=== PATIENT | female | born 1990 | race Two or more races ===

== ENCOUNTER 2024-10-15 18:22 | Emergency (ER) | payer OTHER ==
[~2024-10-15] VITALS: Ht 165.1 cm; Wt 94.3 kg
[2024-10-15 18:37] VITALS: BP 92/59; O2SAT 100
[2024-10-15] MEDS ORDERED: FAMOtidine 10 MG/ML (4ML VIAL) IV ONE (19:00)
[2024-10-15] MEDS ORDERED: ONDANSETRON HCL 2 MG/ML VIAL IV ONE (19:00)
[2024-10-15] MEDS ORDERED: ONDANSETRON HCL 2 MG/ML VIAL ONE (19:41)
[2024-10-15] MEDS ORDERED: FAMOTIDINE/PF 20 MG/2 ML VIAL ONE (19:41)
[2024-10-15 19:47] LABS: HEMATOCRIT 39.6 % (36.0-45.00); HEMOGLOBIN 13.6 g/dL (12.0-15.00); MEAN CELL VOLUME 91.7 fL (80.00-100.00); MEAN CORPUSCULAR HEMOGLOBIN 31.5 pg (27.00-32.0); MEAN CORPUSCULAR HGB CONC 34.4 g/dl (32.0-36.0); PLATELET COUNT 305 K/uL (150-450); RED BLOOD COUNT 4.32 M/uL (4.00-6.00); RED CELL DISTRIBUTION WIDTH 13.8 % (11.5-14.5)
[2024-10-15 20:06] LABS: PH,URINE 6.5 (5.0-8.0); URINE APPEARANCE Clear; URINE BILIRRUBIN Negative (NEGATIVE); URINE BLOOD Negative; URINE COLOR Yellow; URINE GLUCOSE Negative (NEGATIVE); URINE KETONE Negative (NEGATIVE); URINE LEUKOCYTE Large; URINE NITRATE Negative; URINE PROTEIN Negative (NEGATIVE)
[2024-10-15 20:10] LABS: URINE BACTERIA 2168.8 uL (0.0-1933); URINE EPITHELIAL CELLS 36.5 uL (0.0-38.8); URINE RBC 22.3 uL (0.0-20.8)
[2024-10-15 20:28] LABS: ALBUMIN 3.5 gm/dL (3.4-5.0); BILIRUBIN TOTAL 0.38 mg/dL (0.3-1.2); CALCIUM 9.4 mg/dL (8.5-10.1); CREATININE SERUM 0.81 mg/dL (0.55-1.02); GFR 81.43; GLOBULINA 3.6 G/DL (2.4-3.5); POTASSIUM 3.92 mEq/L (3.5-5.1); TOTAL PROTEIN 7.1 gm/dL (6.4-8.2)
[2024-10-15 20:39] LABS: URINE CAST 0.44 uL (0.0-1.40)
[2024-10-15] MEDS ORDERED: ZOFRAN8 MG PO (23:08)
[2024-10-15] MEDS ORDERED: PROTONIX40 MG PO (23:08)
== END 2024-10-15 23:14 | disposition home or self-care (01) ==
LOC: ER 18:23
PROVIDERS: General Practice
DX: O26.891 Other specified pregnancy related conditions, first trimester (principal); Z3A.08 8 weeks gestation of pregnancy; R10.11 Right upper quadrant pain

== ENCOUNTER 2025-04-02 21:53 | Outpatient (CLI) | payer OTHER ==
[~2025-04-02] VITALS: Ht 165.1 cm; Wt 102.1 kg
[~2025-04-02 21:53] MED LIST: PROTONIX40 MG PO; ZOFRAN8 MG PO
[2025-04-02 22:18] VITALS: BP 98/64; O2SAT 99
[2025-04-02] MEDS ORDERED: MAGNESIUM100 MG PO (22:55)
[2025-04-02] MEDS ORDERED: PRENATAL TABLE1 EAC1 PO (22:55)
[2025-04-02] MEDS ORDERED: MUCINEX600 MG PO (22:56)
[2025-04-02] MEDS ORDERED: RINGERS SOLUTION,LACTATED 1,000 ML IV SCH (23:00)
[2025-04-02 23:25] VITALS: BP 98/67
[2025-04-02 23:29] LABS: URINE APPEARANCE Cloudy; URINE BILIRRUBIN Negative (NEGATIVE); URINE BLOOD Negative; URINE COLOR Yellow; URINE GLUCOSE Negative (NEGATIVE); URINE KETONE Negative (NEGATIVE); URINE LEUKOCYTE Large; URINE NITRATE Negative; URINE PROTEIN Negative (NEGATIVE); URINE UROBILINOGEN 0.2 E.U./dl
[2025-04-02 23:32] LABS: URINE BACTERIA 2312.3 uL (0.0-1933); URINE EPITHELIAL CELLS 75.3 uL (0.0-38.8); URINE RBC 6.3 uL (0.0-20.8); URINE WBC 285.1 uL (0.0-23.2)
[2025-04-02 23:50] LABS: BASO % 0.4 % (0.1-1.2); EOS # 0.08 (0.04-0.54); EOS % 1.0 % (0.7-7.0); LYMPH # 2.52 (1.18-3.74); LYMPH % 30.8 % (19.3-53.1); MEAN PLATELET VOLUME 9.30 fl (9.4-12.4); MONO # 0.53 (0.24-0.82); MONO % 6.5 % (4.7-12.5); NEUT # 4.87 (1.56-6.13); NEUT % 59.6 % (34.0-71.1); RED CELL DISTRIBUTION WIDTH 12.4 % (11.6-14.4)
[2025-04-02 23:53] LABS: INR 0.97
[2025-04-03 00:30] LABS: URINE CAST 0.14 uL (0.0-1.40)
[2025-04-03 00:33] LABS: TYPE CELLS SQUAMOUS
[2025-04-03] MEDS ORDERED: CEFAZOLIN SODIUM 1,000 MG VIAL IV SCH (00:43)
[2025-04-03 03:19] VITALS: BP 98/66
[2025-04-03 06:22] VITALS: BP 102/65; O2SAT 97
[2025-04-03 10:58] VITALS: BP 102/65
== END 2025-04-03 11:06 | disposition home or self-care (01) ==
LOC: OBS/DEL 21:53
PROVIDERS: ATTEND Obstetrics & Gynecology
DX: O23.43 Unspecified infection of urinary tract in pregnancy, third trimester (principal); N39.0 Urinary tract infection, site not specified; O26.849 Uterine size-date discrepancy, unspecified trimester; O36.8130 Decreased fetal movements, third trimester, not applicable or unspecified; Z3A.31 31 weeks gestation of pregnancy

== ENCOUNTER 2025-05-01 19:19 | Inpatient (IN) | payer OTHER ==
[~2025-05-01] VITALS: Ht 165.1 cm; Wt 108.9 kg
[~2025-05-01 19:19] MED LIST changes: +MAGNESIUM100 MG PO; +MUCINEX600 MG PO; +PRENATAL TABLE1 EAC1 PO
[2025-05-01] MEDS ORDERED: RINGERS SOLUTION,LACTATED 1,000 ML IV SCH (19:30)
[2025-05-01] MEDS ORDERED: AMPICILLIN SODIUM 2,000 MG VIAL IV NR (19:30)
[2025-05-01 19:49] VITALS: BP 125/69; O2SAT 98
[2025-05-01 20:22] LABS: BASO % 0.3 % (0.1-1.2); EOS # 0.05 (0.04-0.54); EOS % 0.5 % (0.7-7.0); LYMPH # 2.20 (1.18-3.74); LYMPH % 24.0 % (19.3-53.1); MEAN PLATELET VOLUME 9.80 fl (9.4-12.4); MONO # 0.64 (0.24-0.82); MONO % 7.0 % (4.7-12.5); NEUT # 6.09 (1.56-6.13); NEUT % 66.7 % (34.0-71.1); RED CELL DISTRIBUTION WIDTH 13.0 % (11.6-14.4)
[2025-05-01 20:24] LABS: URINE APPEARANCE Clear; URINE BILIRRUBIN Negative (NEGATIVE); URINE BLOOD Negative; URINE COLOR Yellow; URINE GLUCOSE Negative (NEGATIVE); URINE KETONE Negative (NEGATIVE); URINE LEUKOCYTE Large; URINE NITRATE Negative; URINE PROTEIN Negative (NEGATIVE); URINE UROBILINOGEN 0.2 E.U./dl
[2025-05-01 20:26] LABS: URINE BACTERIA 1052.2 uL (0.0-1933); URINE EPITHELIAL CELLS 47.0 uL (0.0-38.8); URINE RBC 7.3 uL (0.0-20.8); URINE WBC 562.4 uL (0.0-23.2)
[2025-05-01 20:29] LABS: URINE CAST 0.00 uL (0.0-1.40)
[2025-05-01] MEDS ORDERED: BETAMETHASONE ACETATE,SOD PHOS 30 MG/5 ML ML IM ONE (20:30)
[2025-05-01 20:42] LABS: INR 0.97
[2025-05-01 23:22] VITALS: BP 118/70
[2025-05-02] MEDS ORDERED: AMPICILLIN SODIUM 1,000 MG VIAL IV SCH
[2025-05-02] MEDS ORDERED: CITRIC ACID/SODIUM CITRATE 30 ML BLIST.PACK PO ONE ×2 (01:18→01:45)
[2025-05-02 04:33] VITALS: BP 119/60
[2025-05-02 08:07] VITALS: BP 121/68
[2025-05-02 11:57] VITALS: BP 105/67
[2025-05-02] MEDS ORDERED: FAMOTIDINE/PF 20 MG/2 ML VIAL IV STA (12:02)
[2025-05-02 16:21] VITALS: BP 112/60
[2025-05-02] MEDS ORDERED: BETAMETHASONE ACETATE,SOD PHOS 30 MG/5 ML ML IM SCH (20:00)
[2025-05-02 20:02] VITALS: BP 114/65
[2025-05-02] MEDS ORDERED: BETAMETHASONE ACETATE,SOD PHOS 30 MG/5 ML ML IM ONE (20:45)
[2025-05-03] VITALS (7 sets, daily range): BP systolic 95–109; BP diastolic 41–63
[2025-05-03] MEDS ORDERED: OXYTOCIN 20 UNITS/500ML RL PIGGYBAG IV SCH (19:45)
[2025-05-03] MEDS ORDERED: OXYTOCIN 20 UNITS/1000ML RL PIGGYBAG IV ONE (19:55)
[2025-05-03] MEDS ORDERED: CHLORHEXIDINE GLUCONATE 120 ML BOTTLE TOP ONE (19:55)
[2025-05-03] MEDS ORDERED: ERYTHROMYCIN BASE OPHT 1GM EACH TUBE OP ONE (19:55)
[2025-05-03] MEDS ORDERED: LIDOCAINE HCL 1% 10ML VIAL ONE (19:55)
[2025-05-04] VITALS (9 sets, daily range): BP systolic 92–103; BP diastolic 41–69
[2025-05-04] MEDS ORDERED: CHLORHEXIDINE GLUCONATE 120 ML BOTTLE TP SCH (01:45)
[2025-05-04] MEDS ORDERED: ACETAMINOPHEN 500 MG GEL..CAP PO PRN (01:45)
[2025-05-04] MEDS ORDERED: OXYTOCIN 1,000 ML IV SCH (01:45)
[2025-05-04 06:31] LABS: BASO % 0.3 % (0.1-1.2); EOS # 0.00 (0.04-0.54); EOS % 0.0 % (0.7-7.0); LYMPH # 1.78 (1.18-3.74); LYMPH % 11.6 % (19.3-53.1); MEAN PLATELET VOLUME 10.20 fl (9.4-12.4); MONO # 0.75 (0.24-0.82); MONO % 4.9 % (4.7-12.5); NEUT # 12.56 (1.56-6.13); NEUT % 81.5 % (34.0-71.1); RED CELL DISTRIBUTION WIDTH 13.1 % (11.6-14.4)
[2025-05-04] MEDS ORDERED: PNV,CALCIUM 72/IRON/FOLIC ACID 1 TAB TABLET PO SCH (09:00)
[2025-05-05] VITALS: BP 99/62
[2025-05-05 09:27] VITALS: BP 103/67
== END 2025-05-05 16:25 | disposition home health service (06) | DRG 805 ==
LOC: LDR 19:19 → OB/GYN 19:19 → LDR 20:27 → OB/GYN 05-04 04:16
PROVIDERS: ADMIT Obstetrics & Gynecology; ATTEND Obstetrics & Gynecology
PROC: 4A1HXCZ Monitoring of Products of Conception, Cardiac Rate, External Approach (ICD-10-PCS; 2025-05-01)
PROC: BY4FZZZ Ultrasonography of Third Trimester, Single Fetus (ICD-10-PCS; 2025-05-02)
PROC: BU4CZZZ Ultrasonography of Uterus and Ovaries (ICD-10-PCS; 2025-05-02)
PROC: 10E0XZZ Delivery of Products of Conception, External Approach (ICD-10-PCS; principal; 2025-05-04)
PROC: 0UQG7ZZ Repair Vagina, Via Natural or Artificial Opening (ICD-10-PCS; 2025-05-04)
DX: O71.4 Obstetric high vaginal laceration alone (principal); O60.14X0 Preterm labor third trimester with preterm delivery third trimester, not applicable or unspecified; Z37.0 Single live birth; O36.8130 Decreased fetal movements, third trimester, not applicable or unspecified; O26.843 Uterine size-date discrepancy, third trimester; Z3A.36 36 weeks gestation of pregnancy